=== PATIENT | female | born 1990 | race Caucasian/White ===

== ENCOUNTER 2019-04-14 16:00 | Outpatient (CLI) | payer BC ==
--- NOTE | 2019-04-14 16:28 | RAD ---
Exam: XR Wrist 3 Rt View STANDARD HISTORY: Right wrist pain COMPARISON: None FINDINGS: No acute fracture, dislocation, or other acute osseous abnormality is identified. IMPRESSION: No acute osseous abnormality is identified. If patient's symptoms persist, conservative management an d follow-up imaging in 4-7 days is recommended to exclude a radiographically occult fracture.
== END 2019-04-14 16:01 | disposition home or self-care (01) ==
LOC: BICRAD 16:00
PROVIDERS: ATTEND Family Medicine
DX: M25.531 Pain in right wrist (principal)